=== PATIENT | male | born 1975 | race Caucasian/White ===

== ENCOUNTER 2024-02-10 03:01 | Emergency (ER) | payer OTHER ==
[2024-02-10 03:12] VITALS: BP 136/90
[2024-02-10] MEDS ORDERED: predniSONE 20 MG/TAB PO ONE (03:25)
[2024-02-10] MEDS ORDERED: DiphenhydrAMINE HCL 25 MG CPLT PO ONE (03:25)
[2024-02-10] MEDS ORDERED: PREDNISONE50 MG PO ×3 (03:30→19:29)
[2024-02-10] MEDS ORDERED: TOBREX OPTH5 ML/BTL OU ×3 (03:30→19:29)
[2024-02-10 04:02] VITALS: BP 136/90
== END 2024-02-10 04:02 | disposition home or self-care (01) | DRG 125 ==
LOC: ED 03:01
DX: H10.9 Unspecified conjunctivitis (principal); R21 Rash and other nonspecific skin eruption